=== PATIENT | male | born 1990 | race Caucasian/White ===

== ENCOUNTER 2016-11-17 18:54 | Emergency (ER) ==
[2016-11-17] MEDS ORDERED: PEPCID PO ONE (20:45)
[2016-11-17] MEDS ORDERED: FLEXERIL PO ONE (20:45)
[2016-11-17] MEDS ORDERED: NORCO-7.5 PO ONE (20:45)
[2016-11-17] MEDS ORDERED: TORADOL PO ONE (20:45)
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
[2016-11-17 21:10] VITALS: BP 142/98
--- NOTE | 2016-11-18 08:13 | Diag Imaging Result Document ---
PROCEDURE NAME: LUMBAR SPINE - 11/17/2016 LUMBAR SPINE, 6 VIEWS: COMPARISON: None. FINDINGS: Alignment is anatomic. Vertebral body heights and intervertebral disc spaces are preserved. No pars defect. Sacroiliac joints are clear. IMPRESSION: Negative exam.
== END 2016-11-17 21:14 | disposition home or self-care (01) ==
LOC: ED 18:54
DX: S39.012A Strain of muscle, fascia and tendon of lower back, initial encounter (principal); M54.5 Low back pain; M54.6 Pain in thoracic spine; R20.2 Paresthesia of skin; V89.2XXA Person injured in unspecified motor-vehicle accident, traffic, initial encounter
CPT/HCPCS: 72110; 99283